=== PATIENT | male | born 2000 | race Hispanic/Latino ===

== ENCOUNTER 2022-04-19 19:42 | Emergency (ER) | payer BC ==
[~2022-04-19 19:42] MED LIST: Iopamidol 300 61% 100 ML VIAL FS ONE
[2022-04-19] MEDS ORDERED: Ketorolac Tromethamine 30 MG/ML VIAL ONE (20:19)
[2022-04-19] MEDS ORDERED: Dexamethasone 10 MG/ML VIAL ONE (20:19)
[2022-04-19 20:23] LABS: MONO NEGATIVE CONTROL ZONE White (Negative) (White); MONO POSITIVE CONTROL Pink Line (Positive) (PINK/RED); Mononucleosis POSITIVE (NEGATIVE)
[2022-04-19 20:29] LABS: Hemoglobin 15.7 g/dL (13.5-17.5); Mean Corpuscular Hemoglobin 29.8 pg (27.0-33.0); Mean Corpuscular Volume 85.2 fl (81.2-95.1); Mean Platelet Volume 9.4 fl (7.4-10.4); Platelet Count 232 10x3/uL (150-450); RBC Distribution Width 12.8 % (11.5-14.5); Red Blood Cell (RBC) Count 5.26 10x6/uL (4.32-5.72); White Blood Cell (WBC) Count 8.8 10x3/uL (3.5-10.5)
[2022-04-19 20:51] LABS: ALT (SGPT) 89 U/L (8-55); AST (SGOT) 48 U/L (5-34); Albumin 4.7 g/dL (3.5-5.0); Alkaline Phosphatase 88 U/L (40-110); Anion Gap 14 mmol/L (10-20); BUN (Urea Nitrogen) 10 mg/dL (8.9-20.6); Bilirubin, Total 0.5 mg/dL (0.2-1.2); Calc. Creatinine Clearance 0 mL/min (70-130); Calcium 9.5 mg/dL (7.8-10.44); Carbon Dioxide 24 mmol/L (22-29); Chloride 105 mmol/L (98-107); Estimated GFR 130; Globulin 3.6 g/dL (2.4-3.5); Glucose 106 mg/dL (70-105); Potassium 3.9 mmol/L (3.5-5.1); Protein, Total 8.3 g/dL (6.0-8.3); Sodium 139 mmol/L (136-145)
[2022-04-19 21:01] LABS: Band 13 % (5-11)
[2022-04-19 21:02] LABS: Eosinophils 2 % (0-10); Reactive Lymphocytes 27 % (0-10)
[2022-04-19 21:03] LABS: Lymphocytes 18 % (21-51); Neutrophil 32 % (42-75)
[2022-04-19 21:04] LABS: Monocytes 7 % (0-10)
[2022-04-19 21:06] LABS: Large Platelets SLIGHT; Platelet Morphology Comment Appears Adequate; Vacuoles SLIGHT
[2022-04-19 21:07] LABS: MDiff Complete? YES; RBC Morphology Normal
== END 2022-04-19 22:02 | disposition home or self-care (01) ==
LOC: CSHERS 19:42
DX: B27.90 Infectious mononucleosis, unspecified without complication (principal); R59.1 Generalized enlarged lymph nodes; R94.5 Abnormal results of liver function studies
CPT/HCPCS: 70491; 80053; 85025; 86308; 96374; J1100; J1885; Q9967